=== PATIENT | female | born 1975 | race Caucasian/White ===

== ENCOUNTER 2021-12-07 14:47 | Emergency (ER) | payer OTHER ==
[~2021-12-07] VITALS: Ht 162.6 cm; Wt 56.7 kg
[2021-12-07] MEDS ORDERED: NAPROXEN375 MG PO (16:50)
[2021-12-07] MEDS ORDERED: BACTRIM DS TAB1 EACH PO (16:50)
== END 2021-12-07 17:21 | disposition home or self-care (01) ==
LOC: ER 14:47
DX: S81.011A Laceration without foreign body, right knee, initial encounter (principal); X58.XXXA Exposure to other specified factors, initial encounter; Y93.15 Activity, underwater diving and snorkeling; Y92.832 Beach as the place of occurrence of the external cause; Y99.9 Unspecified external cause status